=== PATIENT | female | born 2005 | race Caucasian/White ===

== ENCOUNTER 2024-10-29 15:15 | Emergency (ER) | payer OTHER, SELFPAY ==
[2024-10-29 15:26] VITALS: BP 117/74; PULSE 80; RESP 18; TEMP 36.9; O2SAT 95; BMI 33.3
--- NOTE | 2024-10-29 15:32 | DI.RAD.S_ITS ---
PROCEDURE: XR FOOT LT MIN 3V INDICATIONS: foot pain at 3rd/4th toes with walking TECHNIQUE: 3 views of the foot were acquired. COMPARISON: None. FINDINGS: Bones: In this patient with this given history, scrutiny is given to the 3rd and 4th toes. No significant abnormality can be seen. No fractures or dislocations are seen elsewhere. No suspicious bony lesions. Incidental note is made of a bipartite medial sesamoid bone. Soft tissues: No tibiotalar joint effusion. Achilles tendon appears normal. IMPRESSION: No imaging explanation is found for this patient's presenting symptoms. Dictated by: Liang Mccoy M.D. on 10/29/2024 at 15:37 Approved by: Liang Mccoy M.D. on 10/29/2024 at 15:37
--- NOTE | 2024-10-29 17:45 | ED_ITS ---
<Statement entered by Christiano Madison MD - 11/10/24 15:39> I was present in the department and available for consultation at the time the patient was seen HPI - Extremity Injury (Lower) General Chief Complaint: Extremity Injury, Lower Stated Complaint: left foot/toe pain- stinging Time Seen by Provider: 10/29/24 16:15 Source: patient Mode of arrival: Ambulatory History of Present Illness HPI Narrative: Ms. Damico is a pleasant 19-year-old female, active [employer], who presents to the emergency department for left foot 3rd and 4th toe pain x1 day. Patient states that she was walking at home barefoot when she ?randomly? developed pain on the dorsal aspect of her left 3rd and 4th toes extending onto the foot. This pain occurred while she was hyperextending the toes in a plantar flexed position. She has had pain on the 3rd and 4th left proximal phalnx region since then. [place] she was sent to the ER. She is ambulatory, she has not taken any medications. Pain is starting to improve with rest. No history of prior injury. No open wounds. No other concerns. Related Data Allergies Allergy/AdvReac Type Severity Reaction Status Date / Time No Known Drug Allergies Allergy Verified 10/29/24 15:26 Review of Systems Review of Systems ROS Unobtainable: All systems reviewed & are unremarkable except as noted in HPI and below Patient History Social History Smoking Status: Never smoker Smoking Status: Never smoker Exam Narrative Exam Narrative: GENERAL: 19 year old patient appears stated age. Well-developed patient, in no acute distress. HEAD: Atraumatic. Normocephalic. CARDIOVASCULAR: Regular rate RESPIRATORY: ?Nonlabored respirations. ?Speaking in clear, full sentences. EXTREMITIES: On the left foot, pt has mild TTP 4th and 3rd toes at the PIP joint region. No deformities. Sensation intact to light touch and brisk cap refill intact distal to the area of pain. Strong DP and PT pulses. No deformities. NEURO: AOx3. ?Clear speech. ?Moves all 4 extremities appropriately. SKIN: No rash or erythema of visible areas Initial Vital Signs Initial Vital Signs: Vital Signs Temperature 98.4 F 10/29/24 15:26 Pulse Rate 80 10/29/24 15:26 Respiratory Rate 18 10/29/24 15:26 Blood Pressure 117/74 10/29/24 15:26 Pulse Oximetry 95 10/29/24 15:26 Oxygen Delivery Method Room Air 10/29/24 15:26 Course Orders Ordered: ED Orders 10/29/24 15:32 XR foot LT min 3V Stat Vital Signs Vital signs: Vital Signs - 8 hr 10/29/24 15:26 10/29/24 18:35 Temperature 98.4 F Pulse Rate 80 72 Respiratory Rate 18 16 Blood Pressure 117/74 115/70 Pulse Oximetry 95 100 Oxygen Delivery Method Room Air MDM - Extremity Injury (Lower) Imaging Data Left Foot XR: Radiologist's Impression: PROCEDURE: XR FOOT LT MIN 3V INDICATIONS: foot pain at 3rd/4th toes with walking TECHNIQUE: 3 views of the foot were acquired. COMPARISON: None. FINDINGS: Bones: In this patient with this given history, scrutiny is given to the 3rd and 4th toes. No significant abnormality can be seen. No fractures or dislocations are seen elsewhere. No suspicious bony lesions. Incidental note is made of a bipartite medial sesamoid bone. Soft tissues: No tibiotalar joint effusion. Achilles tendon appears normal. IMPRESSION: No imaging explanation is found for this patient's presenting symptoms. Dictated by: Liang Mccoy M.D. on 10/29/2024 at 15:37 Approved by: Liang Mccoy M.D. on 10/29/2024 at 15:37 [facility] [place] Narrative Medical decision making narrative: 19-year-old female, active [employer], who presents to the emergency department for left foot 3rd and 4th toe pain x1 day. Differential diagnosis includes but is not limited to toe fracture, sprain, strain, etc. On exam the patient is in no acute distress, nontoxic appearing, vital signs appropriate, left foot neurovascularly intact with no deformities, no wounds, strong pulses, brisk cap refill, sensation intact to light touch. Patient has tenderness of the left 3rd and 4th toes around the proximal phalanx/PIP joint region. X-ray obtained in triage reveals no acute bony abnormalities. Suspect patient may have sprained the intermetatarsal ligaments or other surrounding structure. Choose placed into a postop shoe for comfort, recommended rice therapy, ibuprofen, acetaminophen, follow up with PCP. Discussed ER return precautions. Patient verbalized understanding of all information is happy with the plan, ambulatory and stable for discharge home. Discharge Plan Departure Patient Disposition: Home Clinical Impression: Acute pain of left foot, Strain of fourth toe Instructions: DI for Foot Pain Activity Restrictions/Additional Instructions: Dear Elo Anita, Thank you for coming to the emergency department. Today your x-ray did not reveal any broken bones. You have likely strain/sprain of the soft tissues in your toe/foot. Please wear the postoperative shoe for support as long as your pain persists. Please use RICE therapy for your pain in addition to ibuprofen/acetaminophen. Rest the painful area. Ice the area of pain/swelling for at least 15 minutes, 4x a day. Compress the area of swelling using a brace, wrap, or splint if applied. Elevate the painful or swollen extremity by supporting it above the level of the heart with pillows when sitting or laying. Please take Ibuprofen (Motrin/Advil) or Acetaminophen (Tylenol) for pain. These are available over the counter. You may take Ibuprofen 600 mg every 8 hours with food for pain. You may also take Acetaminophen 650 mg every 4-6 hours for pain. Do not exceed 3000 mg of Tylenol a day as this can cause liver damage. Do not drink alcohol with either of these medications. Please follow up with your primary care doctor within the next 2-3 days for ER follow-up. (If you do not have a PCP you can call [phone]. ?to schedule an appointment with an [facility] Primary Care Provider) IF YOU DEVELOP ANY NEW OR WORSENING SYMPTOMS, RETURN TO THE ER! Please read the attached instructions, they highlight more specific treatments and interventions for you at home. Thank you for letting me participate in your care, Prema Frank PA-C Stand Alone Forms: Patient Portal/API, Work Release Note
[2024-10-29 18:35] VITALS: BP 115/70; PULSE 72; RESP 16; O2SAT 100
== END 2024-10-29 18:38 | disposition home or self-care (01) ==
PROVIDERS: Emergency Provider Physician Assistant
DX: M79.672 Pain in left foot (principal); S96.912A Strain of unspecified muscle and tendon at ankle and foot level, left foot, initial encounter
CPT/HCPCS: 73630; 99281; 99283